=== PATIENT | female | born 1950 | race Caucasian/White ===

== ENCOUNTER 2017-05-01 20:47 | Emergency (ER) | payer MEDICARE, OTHER ==
[2017-05-01] MEDS: IOHEXOL 300 MG/ML 100ML VIAL. IV (01:30)
[2017-05-01] MEDS: ONDANSETRON ODT 4 MG TAB.RAPDIS. PO (21:34)
[2017-05-01] MEDS: MORPHINE SULFATE 10 MG/ML VIAL. IM (21:35)
[2017-05-01] MEDS ORDERED: CONTRAST GIVEN MC (22:45)
[2017-05-02 00:25] LABS: AGAP ISTAT 15 mmol/L (6-14); BUN ISTAT 21 mg/dL (8-26); CHLORIDE ISTAT 105 mmol/L (98-110); CREATININE ISTAT 0.9 mg/dL (0.5-1.4); GLUCOSE ISTAT 129 mg/dL (70-99); HEMATOCRIT ISTAT 44 % (36-40); ION CA ISTAT 1.13 mmol/L (1.13-1.32); SODIUM ISTAT 142 mmol/L (135-145); TOT CO2 ISTAT 27 mmol/L (23-32)
[2017-05-02] MEDS: MORPHINE SULFATE 4 MG/ML DISP.SYRIN. IV (00:30)
[2017-05-02] MEDS: ONDANSETRON PF 4 MG/2 ML VIAL. IV (01:28)
== END 2017-05-02 02:01 | disposition home or self-care (01) ==
LOC: ER 05-02 02:01
DX: S43.401A Unspecified sprain of right shoulder joint, initial encounter (principal); M48.02 Spinal stenosis, cervical region; W18.39XA Other fall on same level, initial encounter; Y93.89 Activity, other specified; Y99.8 Other external cause status; Y92.89 Other specified places as the place of occurrence of the external cause
CPT/HCPCS: 71046; 71260; 72125; 73030; 80047; 96372; 96374; 96375; 99284-25; J2270; J2405; Q0162; Q9967

== ENCOUNTER → 2017-07-07 | Outpatient (CLI) | payer MEDICARE | END | disposition home or self-care (01) | LOC: KCIC MAMMO 08:50 | DX: Z12.31 Encounter for screening mammogram for malignant neoplasm of breast (principal) | CPT/HCPCS: 77063; 77067 ==

== ENCOUNTER → 2018-10-12 | Outpatient (CLI) | payer MEDICARE ==
[2017-05-01 22:24] VITALS: BP 167/77
[~2018-10-12] MED LIST: CYCL10TA2 PO; HYDR-3135 PO
--- NOTE | 2018-10-12 17:12 | KCIC ---
Bilateral digital screening mammograms with 3-D tomosynthesis: Reason for examination: Routine screening. Comparison is made to previous studies dated 07/07/2017 and 06/29/2014. Bilateral mammograms in CC and oblique projections were obtained with 2-D imaging and 3-D tomosynthesis imaging on a [employer]iration unit and reviewed on the workstation. Interpretation was made with the benefit of CAD. The skin and nipples show no abnormalities. No abnormal axillary lymph nodes are seen. The breast parenchyma is predominantly fatty. (Breast density: Category A.) There continues to be a small nodular density at the 6:00 position anteriorly in the right breast which is stable. There are no new dominant masses, suspicious calcifications or architectural distortion. Impression: No evidence of malignancy. Recommend routine screening. BI-RAD Category 2: Benign. "Our facility is accredited by the [employer] Mammography Program." This patient's information has been entered into a reminder system for the patient to be notified with the results of her examination and a target date for the next mammogram. Electronically signed by: Xenia Grimm MD (10/12/2018 5:09 PM) [id number]
== END | disposition home or self-care (01) ==
LOC: KCIC MAMMO 10:45
PROVIDERS: ATTEND Family Medicine
DX: Z12.31 Encounter for screening mammogram for malignant neoplasm of breast (principal)
CPT/HCPCS: 77063; 77067

== ENCOUNTER → 2020-12-27 | Outpatient (CLI) | payer MEDICARE ==
[2017-05-01 22:24] VITALS: BP 167/77
[~2020-12-27] MED LIST changes: +CYCL10TA19 PO; -CYCL10TA2 PO
--- NOTE | 2020-12-27 17:26 | KCIC ---
Bilateral digital screening 2-D and 3-D (digital breast tomosynthesis) mammogram: Reason for examination: Routine screening. Comparison: Mammograms from 10/12/2018 and 07/07/2017. Interpretation was made with the benefit of CAD. FINDINGS: Breast density: Category B. There are scattered areas of fibroglandular density. No suspicious breast mass, malignant appearing calcifications, or architectural distortion is seen. T here is an unchanged small oval circumscribed mass right retroareolar/6:00 position. IMPRESSION: No evidence of malignancy. Assessment: BI-RADS 2. Benign findings. Recommendation: Routine screening mammograms. The patient will receive a letter with the results in the mail. Patient information will be entered i nto the mammography reminder system with a target recall date for the next mammogram. A reminder layla er will be generated. Electronically signed by: Lorna Sanchez MD (12/27/2020 5:23 PM) [id number]
== END ==
LOC: KCIC MAMMO 11:21
PROVIDERS: ATTEND Family Medicine
DX: Z12.31 Encounter for screening mammogram for malignant neoplasm of breast (principal)
CPT/HCPCS: 77063; 77067